=== PATIENT | female | born 1955 | race Caucasian/White ===

== ENCOUNTER → 2024-12-02 14:17 | Outpatient (REF) | payer MEDICARE, BC, SELFPAY | LOC: RCS 14:17 | PROVIDERS: ATTENDING PHYSICIAN Nurse Practitioner Family | DX: R07.9 Chest pain, unspecified (principal) | CPT/HCPCS: 93017; 93350 ==

== ENCOUNTER → 2025-01-06 14:47 | Outpatient (REF) | payer MEDICARE, BC, SELFPAY | LOC: WDC 14:47 | PROVIDERS: ATTENDING PHYSICIAN Nurse Practitioner Family | DX: Z13.820 Encounter for screening for osteoporosis (principal); Z78.0 Asymptomatic menopausal state; Z12.31 Encounter for screening mammogram for malignant neoplasm of breast | CPT/HCPCS: 77063; 77067; 77080 ==